=== PATIENT | female | born 1980 ===

== ENCOUNTER 2020-01-08 14:41 | Outpatient (CLI) | payer MEDICAID ==
[~2020-01-08] VITALS: Ht 162.6 cm; Wt 54.0 kg
[2020-01-08 15:36] VITALS: BP 102/68
--- NOTE | 2020-01-09 21:15 | Consultation ---
DATE OF CONSULTATION: 01/08/2020 GASTROENTEROLOGY CONSULTATION CHIEF COMPLAINT: Abdominal pain. HISTORY OF PRESENT ILLNESS: This is a very pleasant 39-year-old female with complaint of abdominal pain and bloating. According to her, at one point in April, she was given some antifungal medication, which improved her symptoms. She started complaining of bloating and severe constipation. Apparently, she had abdominopelvic ultrasound and MRI, which has been negative. She is pretty educated about her condition as she seemed that she has done her work, her studying, and her research before coming to the office. She has diagnosis of SIBO and requests treatment. PAST MEDICAL HISTORY: None. PAST SURGICAL HISTORY: History of right arm surgery and surgery. MEDICATIONS: None. FAMILY HISTORY: No family history of GI malignancies. SOCIAL HISTORY: The patient occasionally drinks alcohol, but no IV drug abuse. No tobacco abuse. ALLERGIES: To sulfa. PHYSICAL EXAMINATION: VITAL SIGNS: Temperature 98, blood pressure is 102/68, pulse 93, and respirations 20. HEENT: Normocephalic and atraumatic. Sclerae are anicteric. NECK: Supple. No evidence of obvious lymphadenopathy. CARDIOVASCULAR: Regular rate and rhythm. Plus S1, S2. LUNGS: Clear to auscultation bilaterally. ABDOMEN: Positive bowel sounds. Soft and nontender. No rebound. No guarding. No peritoneal sign. EXTREMITIES: No cyanosis. No clubbing. No edema. ASSESSMENT AND PLAN: A 39-year-old female with symptoms suspicious for SIBO. Discussed the treatment options. The patient wants to get Xifaxan. She does not want to try Augmentin because apparently she had a bad response to penicillin before. She also does not want to take Cipro and Flagyl because she states Cipro or any quinolones make her very sick, so we have no choice, but to give a prescription for Xifaxan at this time. We will try to see if the insurance will cover it. In terms of her constipation, at this time, the patient does not want to take any medications. She is trying to do her herbal treatment and see if that will work for her. Leo Vosoghi, M.D. DR: AMBER JOB#: [id number] CC:
== END 2020-01-08 16:41 | disposition home or self-care (01) ==
LOC: PAN 14:41
DX: R10.9 Unspecified abdominal pain (principal); R14.0 Abdominal distension (gaseous); K59.00 Constipation, unspecified; Z88.2 Allergy status to sulfonamides
CPT/HCPCS: G0463